=== PATIENT | female | born 1980 | race Caucasian/White ===

== ENCOUNTER 2016-10-12 22:22 | Emergency (ER) | payer BC ==
[~2016-10-12] VITALS: Ht 157.5 cm; Wt 82.1 kg
[2016-10-12] MEDS ORDERED: ZOFRAN ODT4 MG PO (23:23)
[2016-10-12] MEDS ORDERED: MOTRIN800 MG PO (23:23)
[2016-10-12] MEDS ORDERED: PERCOCET 5/31 TABLET PO (23:23)
[2016-10-13 00:53] VITALS: BP 120/69
== END 2016-10-13 00:55 | disposition home or self-care (01) ==
LOC: EME 22:22
PROC: 2W3SX1Z Immobilization of Right Foot using Splint (ICD-10-PCS; principal; 2016-10-13)
DX: S92.351A Displaced fracture of fifth metatarsal bone, right foot, initial encounter for closed fracture (principal); X50.1XXA Overexertion from prolonged static or awkward postures, initial encounter; Z88.6 Allergy status to analgesic agent
CPT/HCPCS: 73630; 99281; 99284